=== PATIENT | female | born 1985 | race American Indian/Alaskan Native ===

== ENCOUNTER 2018-09-27 16:23 | Emergency (ER) | payer OTHER ==
[2018-09-27 16:39] VITALS: BP 155/88
--- NOTE | 2018-09-27 17:50 | Emergency Department Report ---
ED Chest Pain HPI - General Chief Complaint: Chest Pain Stated Complaint: CHEST PAIN Time Seen by Provider: 09/27/18 17:40 Source: patient, family Mode of arrival: Ambulatory Limitations: No Limitations - History of Present Illness Initial Comments: This is a 33-year-old female here reports that she has sudden onset of left- sided chest pain 2 hours ago while operated here. Patient describes pain as constant pressure with intermittent sharp pains and cramping. She reports pain increase with deep breath and reports shortness of breath and intermittent left arm numbness. Denies any nausea or vomiting. Denies any fever or chills. Patient has a history of migraine and mitral valve prolapse which was diagnosed 2 years ago. She denies any urinary burning, frequency or urgency. Denies any abdominal pain but reports some back pain in her lower back on both sides. Pain is 10 out of 10 and no alleviating factors or exacerbating factors. No med ication taken for pain. MD Complaint: chest pain -: This evening Onset: during rest Pain Location: left chest Pain Radiation: LUE Severity: severe Severity scale (0 -10): 10 Quality: sharp, pressure Consistency: intermittent Improves With: nothing Worsens With: nothing Context: other (unknown) re: denies: nausea, vomting, diaphoresis, sense of impending doom Other Symptoms: other (denies any history of blood clots, control, bleeding disorder or clotting disorder or family history of blood clots. Denies any recent travel outside the country or long distance driving. Denies any history of cancer or recent convalescent.). denies: cough, fever, syncope, rash, acid taste in mouth, leg swelling, palpitations, burping Treatments Prior to Arrival: none Aspirin use within the Past 7 Days: (0) No - Related Data On Oral Contraceptives: No Previous Rx's Medication Instructions Recorded Last Taken Type Ibuprofen [Motrin] 600 mg PO Q8H PRN #12 tablet 09/27/18 Unknown Rx cephALEXin [Keflex] 500 mg PO Q12H 7 Days #14 cap 09/27/18 Unknown Rx predniSONE [Deltasone] 50 mg PO QDAY 3 Days #3 tab 09/27/18 Unknown Rx Allergies Allergy/AdvReac Type Severity Reaction Status Date / Time tramadol Allergy Itching Verified 09/27/18 16:40 Heart Score - HEART Score History: Slightly suspicious EKG: Normal Age: < 45 Risk factors: 1-2 risk factors (mitral valve prolapse) Troponin: < normal limit HEART Score: 1 - Critical Actions Critical Actions: 0-3 pts:0.9-1.7%risk of adverse cardiac event.Candidate for discharge ED Review of Systems ROS: Stated complaint: CHEST PAIN Other details as noted in HPI Constitutional: denies: chills, fever ENT: denies: throat pain, congestion Respiratory: shortness of breath, SOB with exertion, SOB at rest. denies: cough, wheezing Cardiovascular: chest pain. denies: palpitations, dyspnea on exertion, edema, syncope, paroxysmal nocturnal dyspnea Gastrointestinal: denies: abdominal pain, nausea, vomiting, diarrhea, constipation, hematemesis Genitourinary: denies: hematuria Musculoskeletal: denies: back pain, arthralgia, myalgia Skin: denies: rash Neurological: denies: headache, numbness, paresthesias, confusion, abnormal gait, vertigo ED Past Medical Hx - Past Medical History Previous Medical History?: Yes Hx Headaches / Migraines: Yes Additional medical history: mitral valve prolapse, heart murmur - Surgical History Past Surgical History?: No - Family History Family history: no significant - Social History Smoking Status: Current Every Day Smoker Substance Use Type: None - Medications Home Medications: Home Medications Medication Instructions Recorded Confirmed Last Taken Type Ibuprofen [Motrin] 600 mg PO Q8H PRN #12 tablet 09/27/18 Unknown Rx cephALEXin [Keflex] 500 mg PO Q12H 7 Days #14 cap 09/27/18 Unknown Rx predniSONE [Deltasone] 50 mg PO QDAY 3 Days #3 tab 09/27/18 Unknown Rx ED Physical Exam - General Limitations: No Limitations General appearance: alert, in no apparent distress - Head Head exam: Present: atraumatic, normocephalic, normal inspection, other (normal exam) - Eye Eye exam: Present: normal appearance, PERRL, EOMI Pupils: Present: normal accommodation - ENT ENT exam: Present: normal exam, normal orophraynx, mucous membranes moist, TM's normal bilaterally, normal external ear exam - Neck Neck exam: Present: normal inspection, full ROM. Absent: tenderness, lymphadenopathy - Respiratory Respiratory exam: Present: normal lung sounds bilaterally, chest wall tenderness (positive left chest wall tenderness). Absent: respiratory distress, wheezes, rales, rhonchi, stridor, accessory muscle use, decreased breath sounds, prolonged expiratory - Cardiovascular Cardiovascular Exam: Present: regular rate, normal rhythm, normal heart sounds - GI/Abdominal GI/Abdominal exam: Present: soft. Absent: distended, tenderness, guarding, rebound, rigid, normal bowel sounds, organomegaly, mass - Extremities Exam Extremities exam: Present: normal inspection, full ROM, normal capillary refill, other (No cce. + 2 pulses in all extremities, no neurovascular compromise). Absent: tenderness, pedal edema, joint swelling, calf tenderness - Back Exam Back exam: Present: normal inspection, full ROM, other (ambulates without any di fficulties). Absent: tenderness, CVA tenderness (R), CVA tenderness (L), muscle spasm, paraspinal tenderness, vertebral tenderness, rash noted - Neurological Exam Neurological exam: Present: alert, oriented X3, normal gait - Psychiatric Psychiatric exam: Present: normal affect, normal mood - Skin Skin exam: Present: warm, dry, intact, normal color. Absent: rash ED Course Vital Signs 09/27/18 09/27/18 16:26 17:34 Temperature 98.7 F Pulse Rate 97 H Respiratory 16 18 Rate Blood Pressure 155/88 O2 Sat by Pulse 100 Oximetry - Reevaluation(s) Reevaluation #1: 09/27/18 19:39 Given aspirin 325 mg by mouth and ibuprofen 800 mg by mouth chest pain has been relieved. Reevaluation #2: 09/27/18 19:50 Chest pain has resolved. Patient stable and ready to go SJ score - Sj Score Age > 65: (0) No Aspirin use within the Past 7 Days: (0) No 3 or more CAD Risk Factors: (1) Yes 2 or more Angina events in past 24 hrs: (0) No Known CAD with more than 50% Stenosis: (0) No Elevated Cardiac Markers: (0) No ST Deviation Greater than 0.5mm: (0) No SJ Score: 1 ED Medical Decision Making - Lab Data Result diagrams: 09/27/18 18:01 09/27/18 18:01 Lab Results 09/27/18 09/27/18 09/27/18 Range/Units 18:01 18:01 18:01 WBC 6.6 (4.5-11.0) K/mm3 RBC 4.56 (3.65-5.03) M/mm3 Hgb 12.4 (10.1-14.3) gm/dl Hct 37.7 (30.3-42.9) % MCV 83 (79-97) fl MCH 27 L (28-32) pg MCHC 33 (30-34) % RDW 13.8 (13.2-15.2) % Plt Count 196 (140-440) K/mm3 Lymph % (Auto) Forecast Analyst Add Manual Diff Complete Total Counted 100 Seg Neutrophils % Forecast Analyst Seg Neuts % (Manual) 37.0 L (40.0-70.0) % Band Neutrophils % 0 % Lymphocytes % (Manual) 59.0 H (13.4-35.0) % Reactive Lymphs % (Man) 0 % Monocytes % (Manual) 4.0 (0.0-7.3) % Eosinophils % (Manual) 0 (0.0-4.3) % Basophils % (Manual) 0 (0.0-1.8) % Metamyelocytes % 0 % Myelocytes % 0 % Promyelocytes % 0 % Blast Cells % 0 % Nucleated RBC % Not Reportable Seg Neutrophils # Man 2.4 (1.8-7.7) K/mm3 Band Neutrophils # 0.0 K/mm3 Lymphocytes # (Manual) 3.9 (1.2-5.4) K/mm3 Abs React Lymphs (Man) 0.0 K/mm3 Monocytes # (Manual) 0.3 (0.0-0.8) K/mm3 Eosinophils # (Manual) 0.0 (0.0-0.4) K/mm3 Basophils # (Manual) 0.0 (0.0-0.1) K/mm3 Metamyelocytes # 0.0 K/mm3 Myelocytes # 0.0 K/mm3 Promyelocytes # 0.0 K/mm3 Blast Cells # 0.0 K/mm3 WBC Morphology Not Reportable Hypersegmented Neuts Not Reportable Hyposegmented Neuts Not Reportable Hypogranular Neuts Not Reportable Smudge Cells Not Reportable Toxic Granulation Not Reportable Toxic Vacuolation Not Reportable Dohle Bodies Not Reportable Pelger-Huet Anomaly Not Reportable Felice Rods Not Reportable Platelet Estimate Consistent w auto Clumped Platelets Not Reportable Plt Clumps, EDTA Not Reportable Large Platelets Not Reportable Giant Platelets Not Reportable Platelet Satelliting Not Reportable Plt Morphology Comment Not Reportable RBC Morphology Not Reportable Dimorphic RBCs Not Reportable Polychromasia Not Reportable Hypochromasia Not Reportable Poikilocytosis Not Reportable Anisocytosis Few Microcytosis Not Reportable Macrocytosis Not Reportable Spherocytes Not Reportable Pappenheimer Bodies Not Reportable Sickle Cells Not Reportable Target Cells Few Tear Drop Cells Not Reportable Ovalocytes Few Helmet Cells Not Reportable Hagan-Scofield Bodies Not Reportable Johnson Rings Not Reportable Megan Cells Not Reportable Bite Cells Not Reportable Crenated Cell Not Reportable Elliptocytes Few Acanthocytes (Spur) Not Reportable Rouleaux Not Reportable Hemoglobin C Crystals Not Reportable Schistocytes Not Reportable Malaria parasites Not Reportable Alexei Bodies Not Reportable Hem Pathologist Commnt No D-Dimer 158.81 (0-234) ng/mlDDU Sodium 139 (137-145) mmol/L Potassium 3.7 (3.6-5.0) mmol/L Chloride 104.3 (98-107) mmol/L Carbon Dioxide 25 (22-30) mmol/L Anion Gap 13 mmol/L BUN 8 (7-17) mg/dL Creatinine 0.6 L (0.7-1.2) mg/dL Estimated GFR > 60 ml/min BUN/Creatinine Ratio 13 % Glucose 90 (65-100) mg/dL Calcium 9.5 (8.4-10.2) mg/dL Total Bilirubin 0.50 (0.1-1.2) mg/dL AST 15 (5-40) units/L ALT 6 L (7-56) units/L Alkaline Phosphatase 57 (35-129) units/L Troponin T (0.00-0.029) ng/mL Total Protein 7.8 (6.3-8.2) g/dL Albumin 4.5 (3.9-5) g/dL Albumin/Globulin Ratio 1.4 % Urine Color (Yellow) Urine Turbidity (Clear) Urine pH (5.0-7.0) Ur Specific [place] (1.003-1.030) Urine Protein (Negative) mg/dL Urine Glucose (UA) (Negative) mg/dL Urine Ketones (Negative) mg/dL Urine Blood (Negative) Urine Nitrite (Negative) Ur Reducing Substances Urine Bilirubin (Negative) Urine Ictotest Urine Urobilinogen (<2.0) mg/dL Ur Leukocyte Esterase (Negative) Urine WBC (Auto) (0.0-6.0) /HPF Urine RBC (Auto) (0.0-6.0) /HPF U Epithel Cells (Auto) (0-13.0) /HPF Urine Bacteria (Auto) (Negative) /HPF Urine Mucus /HPF Urine HCG, Qual (Negative) 09/27/18 09/27/18 Range/Units 18:01 18:09 WBC (4.5-11.0) K/mm3 RBC (3.65-5.03) M/mm3 Hgb (10.1-14.3) gm/dl Hct (30.3-42.9) % MCV (79-97) fl MCH (28-32) pg MCHC (30-34) % RDW (13.2-15.2) % Plt Count (140-440) K/mm3 Lymph % (Auto) Add Manual Diff Total Counted Seg Neutrophils % Seg Neuts % (Manual) (40.0-70.0) % Band Neutrophils % % Lymphocytes % (Manual) (13.4-35.0) % Reactive Lymphs % (Man) % Monocytes % (Manual) (0.0-7.3) % Eosinophils % (Manual) (0.0-4.3) % Basophils % (Manual) (0.0-1.8) % Metamyelocytes % % Myelocytes % % Promyelocytes % % Blast Cells % % Nucleated RBC % Seg Neutrophils # Man (1.8-7.7) K/mm3 Band Neutrophils # K/mm3 Lymphocytes # (Manual) (1.2-5.4) K/mm3 Abs React Lymphs (Man) K/mm3 Monocytes # (Manual) (0.0-0.8) K/mm3 Eosinophils # (Manual) (0.0-0.4) K/mm3 Basophils # (Manual) (0.0-0.1) K/mm3 Metamyelocytes # K/mm3 Myelocytes # K/mm3 Promyelocytes # K/mm3 Blast Cells # K/mm3 WBC Morphology Hypersegmented Neuts Hyposegmented Neuts Hypogranular Neuts Smudge Cells Toxic Granulation Toxic Vacuolation Dohle Bodies Pelger-Huet Anomaly Felice Rods Platelet Estimate Clumped Platelets Plt Clumps, EDTA Large Platelets Giant Platelets Platelet Satelliting Plt Morphology Comment RBC Morphology Dimorphic RBCs Polychromasia Hypochromasia Poikilocytosis Anisocytosis Microcytosis Macrocytosis Spherocytes Pappenheimer Bodies Sickle Cells Target Cells Tear Drop Cells Ovalocytes Helmet Cells Hagan-Scofield Bodies Johnson Rings Megan Cells Bite Cells Crenated Cell Elliptocytes Acanthocytes (Spur) Rouleaux Hemoglobin C Crystals Schistocytes Malaria parasites Alexei Bodies Hem Pathologist Commnt D-Dimer (0-234) ng/mlDDU Sodium (137-145) mmol/L Potassium (3.6-5.0) mmol/L Chloride (98-107) mmol/L Carbon Dioxide (22-30) mmol/L Anion Gap mmol/L BUN (7-17) mg/dL Creatinine (0.7-1.2) mg/dL Estimated GFR ml/min BUN/Creatinine Ratio % Glucose (65-100) mg/dL Calcium (8.4-10.2) mg/dL Total Bilirubin (0.1-1.2) mg/dL AST (5-40) units/L ALT (7-56) units/L Alkaline Phosphatase (35-129) units/L Troponin T < 0.010 (0.00-0.029) ng/mL Total Protein (6.3-8.2) g/dL Albumin (3.9-5) g/dL Albumin/Globulin Ratio % Urine Color Yellow (Yellow) Urine Turbidity Slightly-cloudy (Clear) Urine pH 8.0 H (5.0-7.0) Ur Specific [place] 1.020 (1.003-1.030) Urine Protein <15 mg/dl (Negative) mg/dL Urine Glucose (UA) Neg (Negative) mg/dL Urine Ketones 20 (Negative) mg/dL Urine Blood Neg (Negative) Urine Nitrite Neg (Negative) Ur Reducing Substances Not Reportable Urine Bilirubin Neg (Negative) Urine Ictotest Not Reportable Urine Urobilinogen < 2.0 (<2.0) mg/dL Ur Leukocyte Esterase Tr (Negative) Urine WBC (Auto) 1.0 (0.0-6.0) /HPF Urine RBC (Auto) 1.0 (0.0-6.0) /HPF U Epithel Cells (Auto) 8.0 (0-13.0) /HPF Urine Bacteria (Auto) 1+ (Negative) /HPF Urine Mucus 3+ /HPF Urine HCG, Qual Negative (Negative) Urine culture sent - EKG Data -: EKG Interpreted by Me EKG shows normal: sinus rhythm (sinus rhythm at 97 bpm) Rate: normal - EKG Data Interpretation: no acute changes, normal EKG - Radiology Data Radiology results: report reviewed This is a 33-year-old female here report that she is having pain with inspiration. This was dissected by radiologist report reviewed by myself. No acute findings Findings [facility] [address] [place] [address] XRay Report Signed Patient: ANA LUISA HARMON MR#: [id number] : 1985 Acct:[id number] Age/Sex: 33 / F ADM Date: 09/27/18 Loc: ED Attending Dr: Ordering Physician: LISA VIDAL Date of Service: 09/27/18 Procedure(s): XR chest routine 2V Accession Number(s): [id number] cc: LISA VIDAL Fluoro Time In Minutes: FINAL REPORT EXAM: XR CHEST ROUTINE 2V HISTORY: chest pain, pain with inspiration TECHNIQUE: PA and lateral views of the chest PRIORS: None. FINDINGS: Lines, tubes, and devices: N/A Lungs and pleura: Trachea is normal in position. Lungs are clear of infiltrate, pleural effusion, vascular congestion, or pneumothorax. Cardiomediastinal silhouette: Cardiac and mediastinal silhouettes are unremarkable. Other: Bony structures are intact. IMPRESSION: No acute cardiopulmonary process seen. Transcribed By: [facility] Dictated By: CHAD PICKARD MD Electronically Authenticated By: CHAD PICKARD MD Signed Date/Time: 09/27/181935 DD/ 37 TD/TT: 09/27/181937 - Medical Decision Making This is a 33-year-old female. She is here report and that she is having left chest pain that started while she was having her hair braided. Patient was given aspirin 325 mg and Motrin 800 mg. Emergency room. Her chest x-ray was dictated by radiologist and report reviewed by myself and no acute findings. Patient had CBC, CMP. D-dimer and troponin which are all stable.urinalysis with trace urinary tract infection. Urine culture sent. EKG sinus rhythm at 97 bpm. Patient with costochondritis and I explained her diagnosis and treatment plan along with chest x-ray and lab results and she voiced understanding. She also has small urinary tract infection and patient will be treated with Keflex, prednisone and Motrin and to follow up with business services analyst for mitral valve prol apse is straight and also primary care doctor and I told her she does not have a primary care doctor to follow-up at [facility] and she agrees. Vital signs stable she is afebrile and she says she is feeling better. - Differential Diagnosis PNA, PE, bronchitis, costochondritis Critical care attestation.: If time is entered above; I have spent that time in minutes in the direct care of this critically ill patient, excluding procedure time. ED Disposition Clinical Impression: Costochondritis, acute, Atypical chest pain Disposition: TO HOME OR SELFCARE Is pt being admited?: No Does the pt Need Aspirin: No Condition: Stable Instructions: Chest Pain (ED), Costochondritis (ED) Additional Instructions: He is followed by business services analyst in 3-5 days. If you chest pain returns before cardiology appointment and return to the emergency room. Follow-up with outside Medical Center if he does not have a primary care doctor for family practice in 3-5 days Medication as prescribed Increase your fluid intake Referrals: BRIDGET PLATA DO [Primary Care Provider] - 3-5 Days [facility] [Outside] - 3-5 Days WILLARD RANGEL MD [Staff Physician] - 3-5 Days Forms: Work/School Release Form(ED)
[2018-09-27] MEDS ORDERED: ASPIRIN PO ONE (17:52)
[2018-09-27] MEDS ORDERED: IBUPROFEN PO ONE (17:52)
[2018-09-27 18:13] LABS: Hematocrit 37.7 % (30.3-42.9); Hemoglobin 12.4 gm/dl (10.1-14.3); Mean Corpuscular HGB Conc 33 % (30-34); Mean Corpuscular Volume 83 fl (79-97); Platelet Count 196 K/mm3 (140-440); Red Blood Count 4.56 M/mm3 (3.65-5.03); Red Cell Distribution Width 13.8 % (13.2-15.2)
[2018-09-27 18:28] LABS: Alanine Aminotransferase 6 units/L (7-56); Albumin 4.5 g/dL (3.9-5); BUN/Creatinine Ratio 13; Blood Urea Nitrogen 8 mg/dL (7-17); Calcium 9.5 mg/dL (8.4-10.2); Hemolysis Index 1
[2018-09-27 18:44] LABS: HCG Qualitative,Urine Negative (Negative)
[2018-09-27 18:48] LABS: Bacteria,Urine 1+ /HPF (Negative); Bilirubin,Urine NEG (Negative); Blood,Urine NEG (Negative); Color,Urine Yellow (Yellow); Mucus,Urine 3+ /HPF; Protein,Urine <15 mg/dL mg/dL (Negative); Urobilinogen,Urine < 2.0 mg/dL (<2.0)
[2018-09-27 18:59] LABS: Basophils % (Manual) 0 % (0.0-1.8); Eosinophils % (Manual) 0 % (0.0-4.3); Total Cells Counted 100
[2018-09-27 19:00] LABS: Platelet Estimate Consistent w Auto
[2018-09-27 19:01] LABS: Anisocytosis Few; Ovalocytes Few; Target Cells Few
--- NOTE | 2018-09-27 19:36 | XRay Report ---
FINAL REPORT EXAM: XR CHEST ROUTINE 2V HISTORY: chest pain, pain with inspiration TECHNIQUE: PA and lateral views of the chest PRIORS: None. FINDINGS: Lines, tubes, and devices: N/A Lungs and pleura: Trachea is normal in position. Lungs are clear of infiltrate, pleural effusion, va scular congestion, or pneumothorax. Cardiomediastinal silhouette: Cardiac and mediastinal silhouettes are unremarkable. Other: Bony structures are intact. IMPRESSION: No acute cardiopulmonary process seen.
== END 2018-09-27 20:10 | disposition home or self-care (01) ==
LOC: ED 16:23
DX: M94.0 Chondrocostal junction syndrome [Tietze] (principal); R07.89 Other chest pain; G43.909 Migraine, unspecified, not intractable, without status migrainosus; F17.200 Nicotine dependence, unspecified, uncomplicated
CPT/HCPCS: 36415; 71046; 80053; 81001; 81025; 84484; 85007; 85025; 85379; 87086; 93005; 93010

== ENCOUNTER 2019-07-10 05:59 | Emergency (ER) | payer MEDICAID ==
[2019-07-10 06:09] VITALS: BP 139/77
[2019-07-10] MEDS ORDERED: IBUPROFEN 800 MG TAB PO ONE (08:23)
[2019-07-10] MEDS ORDERED: ONDANSETRON 4 MG ODT TAB PO ONE (08:23)
--- NOTE | 2019-07-10 08:57 | Emergency Department Report ---
ED General Adult HPI - General Chief complaint: Fever Stated complaint: FEVER W/CHILLS Time Seen by Provider: 07/10/19 08:09 Source: patient, EMS Mode of arrival: Ambulatory Limitations: No Limitations - History of Present Illness Initial comments: Patient is a 34-year-old -German female withan German past medical history who is presenting with fever and headache for the past 2 days. Patient states that her headaches normally are relieved with Excedrin Migraine however she does have a persistent headache since yesterday. States is right sided and throbbing. Patient has nausea as well as several episodes of watery diarrhea. Patient states she feels very hot and feels that she's had subjective fevers. Fevers associated with some diaphoresis. Patient also notes some right flank discomfort. Patient assumed that she may have a urinary tract infection started drinking cranberry juice over the right flank discomfort is still present. Patient denies dysuria or urinary frequency vomiting or objective fever. Severity scale (0 -10): 2 - Related Data Previous Rx's Medication Instructions Recorded Last Taken Type Ibuprofen [Motrin] 600 mg PO Q8H PRN #12 tablet 09/27/18 Unknown Rx cephALEXin [Keflex] 500 mg PO Q12H 7 Days #14 cap 09/27/18 Unknown Rx predniSONE [Deltasone] 50 mg PO QDAY 3 Days #3 tab 09/27/18 Unknown Rx Dicyclomine [Bentyl] 20 mg PO QID #10 tablet 07/10/19 Unknown Rx Diphenoxylate/Atropine [Lomotil] 1 tab PO Q4H PRN #10 tablet 07/10/19 Unknown Rx Ondansetron [Zofran Odt] 4 mg PO Q8HR #10 tab.rapdis 07/10/19 Unknown Rx Allergies Allergy/AdvReac Type Severity Reaction Status Date / Time tramadol Allergy Itching Verified 09/27/18 16:40 ED Review of Systems ROS: Stated complaint: FEVER W/CHILLS Other details as noted in HPI Comment: All other systems reviewed and negative ED Past Medical Hx - Past Medical History Previous Medical History?: Yes Hx Headaches / Migraines: Yes Additional medical history: mitral valve prolapse, heart murmur - Surgical History Past Surgical History?: No - Social History Smoking Status: Current Every Day Smoker Substance Use Type: None - Medications Home Medications: Home Medications Medication Instructions Recorded Confirmed Last Taken Type Ibuprofen [Motrin] 600 mg PO Q8H PRN #12 tablet 09/27/18 Unknown Rx cephALEXin [Keflex] 500 mg PO Q12H 7 Days #14 cap 09/27/18 Unknown Rx predniSONE [Deltasone] 50 mg PO QDAY 3 Days #3 tab 09/27/18 Unknown Rx Dicyclomine [Bentyl] 20 mg PO QID #10 tablet 07/10/19 Unknown Rx Diphenoxylate/Atropine [Lomotil] 1 tab PO Q4H PRN #10 tablet 07/10/19 Unknown Rx Ondansetron [Zofran Odt] 4 mg PO Q8HR #10 tab.rapdis 07/10/19 Unknown Rx ED Physical Exam - General Limitations: No Limitations General appearance: alert, in no apparent distress - Head Head exam: Present: atraumatic, normocephalic - Eye Eye exam: Present: normal appearance - ENT ENT exam: Present: mucous membranes moist - Neck Neck exam: Present: normal inspection - Respiratory Respiratory exam: Present: normal lung sounds bilaterally. Absent: respiratory distress, wheezes, rales, rhonchi - Cardiovascular Cardiovascular Exam: Present: regular rate, normal rhythm. Absent: systolic murmur, diastolic murmur, rubs, gallop - GI/Abdominal GI/Abdominal exam: Present: soft, tenderness (left flank), normal bowel sounds. Absent: distended, guarding, rebound, rigid - Extremities Exam Extremities exam: Present: normal inspection - Back Exam Back exam: Present: normal inspection - Neurological Exam Neurological exam: Present: alert, oriented X3 - Psychiatric Psychiatric exam: Present: normal affect, normal mood - Skin Skin exam: Present: warm, dry, intact, normal color. Absent: rash ED Course Vital Signs 07/10/19 07/10/19 06:02 08:27 Temperature 98.8 F Pulse Rate 75 Respiratory 18 16 Rate Blood Pressure 139/77 O2 Sat by Pulse 100 Oximetry ED Medical Decision Making - Lab Data Lab Results 07/10/19 Range/Units 09:11 Urine Color Yellow (Yellow) Urine Turbidity Clear (Clear) Urine pH 6.0 (5.0-7.0) Ur Specific [place] 1.023 (1.003-1.030) Urine Protein <15 mg/dl (Negative) mg/dL Urine Glucose (UA) Neg (Negative) mg/dL Urine Ketones 20 (Negative) mg/dL Urine Blood Neg (Negative) Urine Nitrite Neg (Negative) Ur Reducing Substances Not Reportable Urine Bilirubin Neg (Negative) Urine Ictotest Not Reportable Urine Urobilinogen < 2.0 (<2.0) mg/dL Ur Leukocyte Esterase Neg (Negative) Urine WBC (Auto) < 1.0 (0.0-6.0) /HPF Urine RBC (Auto) 6.0 (0.0-6.0) /HPF U Epithel Cells (Auto) 3.0 (0-13.0) /HPF Urine Mucus 3+ /HPF Urine HCG, Qual Negative (Negative) - Radiology Data KUB WNL - Medical Decision Making Patient is a 34-year-old -German female who is presenting with some left flank discomfort diarrhea and nausea for the past 2 days. Patient likely with a viral syndrome. X-ray was performed to rule out partial obstruction. There are no air-fluid levels seen. Urinalysis is ruled out her . There is no significant hematuria suggestive of a kidney stone. Patient's does have 20 ketones in her urine however the patient is stable to do oral rehydration. Patient be discharged home with medications for symptomatic relief. Critical care attestation.: If time is entered above; I have spent that time in minutes in the direct care of this critically ill patient, excluding procedure time. ED Disposition Clinical Impression: Viral gastroenteritis, Mild dehydration Disposition: DC-01 TO HOME OR SELFCARE Is pt being admited?: No Does the pt Need Aspirin: No Condition: Stable Instructions: Gastroenteritis (ED), Dehydration (ED) Referrals: PRIMARY CARE, [Primary Care Provider] - 3-5 Days Time of Disposition: 10:08
[2019-07-10 09:26] LABS: HCG Qualitative,Urine Negative (Negative)
[2019-07-10 09:27] LABS: Bilirubin,Urine NEG (Negative); Blood,Urine NEG (Negative); Color,Urine Yellow (Yellow); Mucus,Urine 3+ /HPF; Protein,Urine <15 mg/dL mg/dL (Negative); Urobilinogen,Urine < 2.0 mg/dL (<2.0); WBC,Urine < 1.0 /HPF (0.0-6.0)
--- NOTE | 2019-07-10 09:49 | XRay Report ---
. SUPINE ABDOMEN INDICATION: N/D. COMPARISON: No relevant prior imaging study available. FINDINGS: Bowel gas pattern is within normal limits. No free air is identified on supine imaging. No abnormal c alcifications are seen. IMPRESSION: 1. No acute findings. Signer Name: Nirav Lopes MD Signed: 07/10/2019 9:44 AM Workstation Name: [id number]
== END 2019-07-10 10:21 | disposition home or self-care (01) ==
LOC: ED 05:59
DX: E86.0 Dehydration (principal); A08.4 Viral intestinal infection, unspecified; G43.909 Migraine, unspecified, not intractable, without status migrainosus; F17.200 Nicotine dependence, unspecified, uncomplicated; Z79.899 Other long term (current) drug therapy; Z88.5 Allergy status to narcotic agent
CPT/HCPCS: 74018; 81001; 81025; 99284; Q0162

== ENCOUNTER 2020-06-16 02:33 | Outpatient (CLI) | payer MEDICAID ==
[2020-06-16] MEDS ORDERED: LACTATED RINGERS 1,000 ML IV ONE (03:46)
[2020-06-16 04:21] LABS: Bilirubin,Urine NEG (Negative); Blood,Urine LG (Negative); Color,Urine Yellow (Yellow); Mucus,Urine FEW /HPF; Protein,Urine <15 mg/dL mg/dL (Negative); Urobilinogen,Urine < 2.0 mg/dL (<2.0)
[2020-06-16 04:24] LABS: Amphetamine Screen,Urine PRESUMPTIVE NEGATIVE; Benzodiazepines Screen,Urine PRESUMPTIVE NEGATIVE; Cannabinoid Screen,Urine PRESUMPTIVE NEGATIVE; Cocaine Screen,Urine PRESUMPTIVE NEGATIVE; Methadone Screen,Urine PRESUMPTIVE NEGATIVE; Opiate Screen,Urine PRESUMPTIVE NEGATIVE
[2020-06-16 07:34] VITALS: BP 122/70
== END 2020-06-16 08:18 | disposition home or self-care (01) ==
LOC: TRG 02:33 → APU 02:34 → TRG 08:18
PROVIDERS: ATTEND Obstetrics & Gynecology
DX: O26.892 Other specified pregnancy related conditions, second trimester (principal); R35.0 Frequency of micturition; R30.9 Painful micturition, unspecified; O47.02 False labor before 37 completed weeks of gestation, second trimester; O99.352 Diseases of the nervous system complicating pregnancy, second trimester; G43.909 Migraine, unspecified, not intractable, without status migrainosus; O99.322 Drug use complicating pregnancy, second trimester; F12.90 Cannabis use, unspecified, uncomplicated; Z3A.21 21 weeks gestation of pregnancy; Z87.891 Personal history of nicotine dependence
CPT/HCPCS: 59025; 80307; 81001; 96361; 96365; J0690; J7120; 96360